=== PATIENT | female | born 1950 | race Caucasian/White ===

== ENCOUNTER 2020-11-12 09:01 | Outpatient (RCR) | payer OTHER ==
[~2020-11-12 09:01] MED LIST: NO HOME MEDICATIONS
== END 2020-12-16 15:15 | disposition home or self-care (01) ==
LOC: WSOH 09:01
DX: S33.8XXA Sprain of other parts of lumbar spine and pelvis, initial encounter (principal); Z98.890 Other specified postprocedural states; Y99.0 Civilian activity done for income or pay

== ENCOUNTER 2021-10-25 13:53 | Emergency (ER) | payer OTHER ==
[~2021-10-25] VITALS: Ht 154.9 cm; Wt 95.5 kg
[2021-10-25 14:09] VITALS: TEMP 96.5
[2021-10-25 16:33] VITALS: BP 157/83; PULSE 70
== END 2021-10-25 16:33 | disposition home or self-care (01) ==
LOC: COL.ER 13:53
DX: S60.222A Contusion of left hand, initial encounter (principal); S00.83XA Contusion of other part of head, initial encounter; W01.0XXA Fall on same level from slipping, tripping and stumbling without subsequent striking against object, initial encounter; Y92.59 Other trade areas as the place of occurrence of the external cause; Y99.0 Civilian activity done for income or pay